=== PATIENT | male | born 1970 | race American Indian/Alaskan Native ===

== ENCOUNTER 2016-10-27 08:41 | Inpatient (IN) | payer OTHER ==
[2016-10-27] MEDS ORDERED: CATAPRES PO ONE (09:06)
[2016-10-27 10:27] LABS: Basophils % (Auto) 0.2 % (0.0-1.8); Hematocrit 35.9 % (35.5-45.6); Hemoglobin 12.3 gm/dl (11.8-15.2); Mean Corpuscular HGB Conc 34 % (32-34); Mean Corpuscular Hemoglobin 29 pg (28-32); Mean Corpuscular Volume 83 fl (84-94); Platelet Count 337 K/mm3 (140-440); Red Blood Count 4.32 M/mm3 (3.65-5.03); Red Cell Distribution Width 14.9 % (13.2-15.2); White Blood Count 18.9 K/mm3 (4.5-11.0)
[2016-10-27 10:44] LABS: Anion Gap 20 mmol/L; Blood Urea Nitrogen 13 mg/dL (9-20); Calcium 8.7 mg/dL (8.4-10.2); Carbon Dioxide 25 mmol/L (22-30); Chloride 94.4 mmol/L (98-107); Glucose 108 mg/dL (75-100); Potassium 4.2 mmol/L (3.6-5.0); Sodium 135 mmol/L (137-145)
[2016-10-27] MEDS ORDERED: MOTRIN PO ONE (11:17)
[2016-10-27] MEDS ORDERED: ZOFRAN IV ONE (18:51)
[2016-10-27] MEDS ORDERED: MORPHINE IV ONE (18:51)
[2016-10-27] MEDS ORDERED: CLEOCIN 600 MG/50 mL 600 MG/50 ML BAG IV ONE (18:55)
[2016-10-27] MEDS ORDERED: NORMODYNE IV ONE ×3 (20:18→22:33)
--- NOTE | 2016-10-27 21:33 | Emergency Department Report ---
- General Chief complaint: Skin/Abscess/Foreign Body Stated complaint: BOIL GROIN AREA Time Seen by Provider: 10/27/16 18:41 Source: patient Mode of arrival: Ambulatory Limitations: No Limitations - History of Present Illness Initial comments: 46-year-old male with a past medical history of hypertension presents to the hospital complaining of scrotal pain and swelling 4 days. Pain is constant, moderate to severe in intensity, worse with palpation and movement. Patient denies dysuria. Positive fever and chills reported at home. Patient states of elevated blood pressure and states he's been noncompliant with this blood pressure medication for at least a week. He states even when he takes it his blood pressures poorly controlled. Patient states he has a headache but thinks is because he has been waiting has not had anything to eat today. - Related Data Home Medications Medication Instructions Recorded Confirmed Last Taken amLODIPine [Norvasc] 5 mg PO DAILY 10/27/16 10/27/16 Unknown Allergies Allergy/AdvReac Type Severity Reaction Status Date / Time No Known Allergies Allergy Unverified 10/27/16 09:00 Abscess Boil HPI - HPI Chief Complaint: Skin/Abscess/Foreign Body Stated Complaint: BOIL GROIN AREA Time Seen by Provider: 10/27/16 18:41 Home Medications: Home Medications Medication Instructions Recorded Confirmed Last Taken amLODIPine [Norvasc] 5 mg PO DAILY 10/27/16 10/27/16 Unknown Allergies/Adverse Reactions: Allergies Allergy/AdvReac Type Severity Reaction Status Date / Time No Known Allergies Allergy Unverified 10/27/16 09:00 ED Review of Systems ROS: Stated complaint: BOIL GROIN AREA Other details as noted in HPI Comment: All other systems reviewed and negative Other: Constitutional: As per HPI Eyes: No eye pain visual changes ENT: No ear pain or throat pain Neck: Denies pain Respiratory: Denies cough wheezing shortness of breath Cardiovascular: Denies chest pain, palpitations, syncope GI: Denies abdominal pain, nausea, vomiting, diarrhea : As per HPI Musculoskeletal: Denies back pain, joint swelling Skin: Per HPI Neurologic: Denies headache, numbness, weakness Psychiatric: Denies suicidal ideation, hallucinations ED Past Medical Hx - Past Medical History Hx Hypertension: Yes - Surgical History Past Surgical History?: No - Social History Smoking Status: Former Smoker Substance Use Type: None - Medications Home Medications: Home Medications Medication Instructions Recorded Confirmed Last Taken Type amLODIPine [Norvasc] 5 mg PO DAILY 10/27/16 10/27/16 Unknown History ED Physical Exam - General Limitations: No Limitations - Other Other exam information: General: No limitations, patient is alert in no acute distress Head exam: Atraumatic, normocephalic Eyes exam: Normal appearance, pupils equal reactive to light, extraocular movements intact ENT: Moist mucous membrane, normal oropharynx Neck exam: Normal inspection, full range of motion, no meningismus nontender Respiratory exam: Clear to auscultation bilateral, no wheezes, rales, crackles Cardiovascular: Normal rate and rhythm, normal heart sounds Abdomen: Soft, nondistended, and nontender, with normal bowel sounds, no rebound, or guarding : Swelling and induration to right scrotal area posteriorly extending anteriorly. Tender to palpation. No testicular tenderness or epididymal tenderness. Circumcised. No penile discharge. No inguinal lymphadenopathy Extremity: Full range of motion normal inspection no deformity Back: Normal Inspection, full range of motion, no tenderness Neurologic: Alert, oriented x3, cranial nerves intact, no motor or sensory deficit Psychiatric: normal affect, normal mood Skin: Warm, dry, intact ED Course Vital Signs 10/27/16 10/27/16 10/27/16 08:47 09:11 11:15 Temperature 99.6 F 101.1 F H Pulse Rate 115 H 115 H 117 H Respiratory 20 20 Rate Blood Pressure 194/140 194/140 188/132 Blood Pressure [Right] O2 Sat by Pulse 95 98 Oximetry 10/27/16 10/27/16 10/27/16 17:59 19:00 19:25 Temperature 99.4 F Pulse Rate 105 H 106 H Respiratory 20 20 20 Rate Blood Pressure Blood Pressure 181/113 194/135 [Right] O2 Sat by Pulse 96 96 Oximetry 10/27/16 10/27/16 10/27/16 19:55 20:46 21:03 Temperature Pulse Rate 107 H Respiratory 20 20 Rate Blood Pressure 159/109 Blood Pressure [Right] O2 Sat by Pulse 97 Oximetry 10/27/16 21:04 Temperature 98.3 F Pulse Rate 107 H Respiratory 20 Rate Blood Pressure Blood Pressure 159/109 [Right] O2 Sat by Pulse 97 Oximetry - Reevaluation(s) Reevaluation #1: 10/27/16 22:27 pt bp improved prior to receiving additional iv bp meds therefore canceled then became elevated again requiring IV meds. Patient treated in the ER with IV clindamycin and pain medications 10/27/16 22:33 - Consultations Consultation #1: 10/27/16 22:26 case d/w Dr. Caruso urology. NO abscess at this time. WIll see in consult ED Medical Decision Making - Lab Data Result diagrams: 10/27/16 10:17 10/27/16 10:17 Lab Results 10/27/16 10/27/16 Range/Units 10:17 10:17 WBC 18.9 H (4.5-11.0) K/mm3 RBC 4.32 (3.65-5.03) M/mm3 Hgb 12.3 (11.8-15.2) gm/dl Hct 35.9 (35.5-45.6) % MCV 83 L (84-94) fl MCH 29 (28-32) pg MCHC 34 (32-34) % RDW 14.9 (13.2-15.2) % Plt Count 337 (140-440) K/mm3 Lymph % (Auto) 9.5 L (13.4-35.0) % [place] % (Auto) 12.3 H (0.0-7.3) % Eos % (Auto) 0.0 (0.0-4.3) % Baso % (Auto) 0.2 (0.0-1.8) % Lymph # 1.8 (1.2-5.4) K/mm3 [place] # 2.3 H (0.0-0.8) K/mm3 Eos # 0.0 (0.0-0.4) K/mm3 Baso # 0.0 (0.0-0.1) K/mm3 Seg Neutrophils % 78.0 H (40.0-70.0) % Seg Neutrophils # 14.7 H (1.8-7.7) K/mm3 Sodium 135 L (137-145) mmol/L Potassium 4.2 (3.6-5.0) mmol/L Chloride 94.4 L (98-107) mmol/L Carbon Dioxide 25 (22-30) mmol/L Anion Gap 20 mmol/L BUN 13 (9-20) mg/dL Creatinine 1.3 (0.8-1.5) mg/dL Estimated GFR > 60 ml/min BUN/Creatinine Ratio 10.00 % Glucose 108 H (75-100) mg/dL Calcium 8.7 (8.4-10.2) mg/dL - Radiology Data Radiology results: report reviewed Scrotal/testicular ultrasound: Scrotal thickening visualized suggesting cellulitis no discrete abscess - Medical Decision Making Plan to admit patient to hospital for IV antibiotics for a scrotal cellulitis with significant leukocytosis. Patient also has poorly controlled blood pressure likely secondary to medication noncompliance. No signs of hypertensive emergency at this time - Differential Diagnosis scrotal abscess, scrotal cellulitis Critical Care Time: No Critical care attestation.: If time is entered above; I have spent that time in minutes in the direct care of this critically ill patient, excluding procedure time. ED Disposition Clinical Impression: Cellulitis of scrotum, Leukocytosis, HTN (hypertension) Disposition: OP ADMITTED IP TO THIS HOSP Is pt being admited?: Yes Condition: Stable Time of Disposition: 22:57 (Matilde/hosp)
--- NOTE | 2016-10-27 22:16 | Ultrasound Report ---
FINAL REPORT PROCEDURE: US TESTICULAR DOPPLER COMP TECHNIQUE: Real-time mckeon-scale and color flow Doppler sonography in multiple planes of the scrotum, testicles, and epididymes was performed. Velocity spectral waveform analysis Doppler imaging of the arterial inflow and venous outflow of the testicles was performed with image documentation. CPT 57538 and 30653 HISTORY: right scrotal abscess COMPARISON: No prior studies are available for comparison. FINDINGS: The echogenicity of the testicles bilaterally appears minimally heterogeneous. No masses or fluid collections are seen. No testicular abscess visualized. No evidence of hydrocele. The scrotal wall appears thickened adjacent to the right testicle. No discrete fluid collection is seen that would suggest an abscess. Right and left epididymis show no gross abnormality. Flow seen in both testicles with Doppler imaging. The testicles do not appear to be enlarged. The right testicle measures 4.0 x 1.6 x 2.5 centimeters. The left testicle measures 3.4 x 1.5 x 2.5 centimeters. IMPRESSION: Scrotal thickening visualized as described suggesting cellulitis. A discrete abscess is not identified. No hydroceles or testicular masses are identified.
[2016-10-27 22:42] LABS: Bilirubin,Urine NEG (Negative); Blood,Urine SM (Negative); Ketones,Urine NEG (Negative); Leukocyte Esterase,Urine NEG (Negative); Mucus,Urine 1+ /HPF; Nitrite,Urine NEG (Negative); Urobilinogen,Urine < 2.0 mg/dL (<2.0)
[2016-10-28] MEDS ORDERED: VANCOMYCIN/NS 1 GM/250 ML 1 GM/250 ML BAG IV ONE (02:15)
[2016-10-28] MEDS ORDERED: ZOFRAN IV PRN ×2 (02:20→06:23)
[2016-10-28] MEDS ORDERED: NACL 0.9% 1000 ML IV SCH (03:00)
[2016-10-28] MEDS: DILAUDID IV PRN ×2 (03:01→06:42)
[2016-10-28] MEDS: NACL 0.9% 1000 ML 1,000 ML IV SCH ×3 (04:37→19:30)
--- NOTE | 2016-10-28 06:20 | Event Note ---
Date: 10/27/16 See H/p in reports Scrotal cellulitis HTN uncontrolled Obesity
[2016-10-28] MEDS ORDERED: DILAUDID IV PRN (06:23)
[2016-10-28] MEDS ORDERED: VANCOMYCIN VIAL 1,000 MG in NACL 0.9% 250ML 250 ML IV SCH (07:00)
[2016-10-28] MEDS: NORVASC PO SCH (09:39)
[2016-10-28] MEDS: LEVAQUIN 750MG/150ML 750 MG/150 ML BAG IV SCH (09:39)
[2016-10-28] MEDS: COZAAR PO SCH (09:39)
[2016-10-28] MEDS ORDERED: NORVASC PO SCH (10:00)
--- NOTE | 2016-10-28 10:24 | Admit Criteria Form ---
Admission Criteria Documentation: CELLULITIS Clinical Indications for Admission to Inpatient Care (Place 'X' for any and all applicable criteria): Admission is indicated for ANY ONE of the following(1)(2)(3)(4)(5): [ ]I. Limb-threatening infection [ ]II. High-risk comorbid condition as indicated by ANY ONE of the following: [ ]a) Uncontrolled diabetes (eg, HbA1c greater than 10% (0.1)) [ ]b) Cirrhosis [ ]c) Neutropenia [ ]d) Asplenia [ ]e) Immunosuppression [ ]f) Symptomatic heart failure [ ]III. Failure of outpatient therapy as indicated by ALL of the following: [ ]a) Progression or no improvement after adequate trial (minimum of 48 hours, with longer period for stable lower extremity infection) [ ]b) Adequate antibiotic regimen as indicated by use of ANY ONE of the following: [ ]i) First-generation cephalosporin (e.g., cephalexin) [ ]ii) Antistaphylococcal penicillin (e.g., dicloxacillin) [ ]iii) Penicillin-allergic patient regimen (clindamycin, extended-spectrum fluoroquinolone, or doxycycline) [ ]iv) Resistant organism (eg, methicillin-resistant Staphylococcus aureus) regimen (6) [ ]c) Outpatient intravenous therapy regimen is not appropriate due to ANY ONE of the following. (7)(8)(9)(10): [ ]i) It was tried and was not successful (eg, progression of infection). [ ]ii) It is not available or cannot be arranged in a clinically appropriate time frame (e.g., the next day). [ ]iii) Clinical presentation (eg, acuity of infection, rapidity of progression, confirmed or suspected bacteremia) is judged to require ALL of the following: [ ]1) Immediate initiation of intravenous therapy ( eg, cannot wait for next day) [ ]2) Intensity of patient monitoring and observation (eg, vital sign measurement, checks for infection progression) that cannot be provided at other than inpatient level of care [ ]IV. Mental status changes [X]V. Bacteremia [ ]. Hemodynamic instability [ ]VII. Suspected necrotizing soft tissue infection (e.g., gas in tissue)(11)( 12) [ ]VIII. Orbital infection (13)(14) [ ]IX. Associated surgical procedure (e.g., abscess drainage, debridement) not amenable to outpatient, emergency department, or observation care [ ]X. Cutaneous gangrene [ ]XI. High fever (temperature greater than 39.5 degrees C (103.1 degrees F) (oral)) not responsive to outpatient, emergency department, or observation care therapy [X]XIII. Inpatient admission required rather than observation care (Also use Cellulitis: Observation Care as appropriate) because of ANY ONE of the following : [ ]a) Periorbital or perineal infection that is severe or worsening [X]b) Severe pain requiring acute inpatient management [ ]c) IV fluid to replace significant ongoing (e.g., for over 24 hours) losses (greater than 3L/m2 per day) [ ]d) Compartment syndrome monitoring (17) [ ]e) Strict or protective (eg, laminar flow) isolation [ ]f) Urgent debridement or skin grafting [ ]g) Bone or joint debridement [ ]h) Immediate inpatient surgery [X]i) Other condition, treatment or monitoring requiring inpatient admission Extended stay beyond goal length of stay may be needed for (1)(18): [ ]a) Necrotizing soft tissue infection or fasciitis [ ]b) Gram-negative infection [ ]c) Methicillin-resistant Staphylococcal aureus (MRSA) infection [ ]d) Peripheral venous insufficiency with cellulitis [ ]e) Extensive edema [ ]f) Sepsis or continued Hemodynamic instability [ ]g) Continued high fever or mental status change [ ]h) Bacteremia [ ]i) Active serious comorbid conditions ( eg, heart failure, renal insufficiency) The original [employer] [facility] content created by [employer] [facility] [employer] has been revised. The portions of the content which have been revised are identified through the use of italic text or in bold, and [facility] has neither reviewed nor approved the modified material. All other unmodified content is copyright [facility] [place] [facility] Please see references footnoted in the original [facility] [employer] edition 2016 Admission Criteria Met: Yes
[2016-10-28] MEDS: VANCOMYCIN VIAL 2,000 MG in NACL 0.9% 500 ML 500 ML IV SCH ×3 (11:16→22:10)
--- NOTE | 2016-10-28 12:08 | Consultation ---
History of Present Illness - Reason for Consult Consult date: 10/28/16 - History of Present Illness 46-year-old male with a past medical history of hypertension presents to the hospital complaining of scrotal pain and swelling 4 days. Pain is constant, moderate to severe in intensity, worse with palpation and movement. Patient denies dysuria. Positive fever and chills reported at home. Patient states of elevated blood pressure and states he's been noncompliant with this blood pressure medication for at least a week. He states even when he takes it his blood pressures poorly controlled. RAULITO (10-27-16) NO ABSCESS exam - scrotal & perineal induration on Levaquin A/p cellulitis no surgery needed home on abx when stable appt 1- 2weeks Medications and Allergies Allergies Allergy/AdvReac Type Severity Reaction Status Date / Time No Known Allergies Allergy Unverified 10/27/16 09:00 Home Medications Medication Instructions Recorded Confirmed Last Taken Type amLODIPine [Norvasc] 5 mg PO DAILY 10/27/16 10/27/16 Unknown History Active Meds: Active Medications Amlodipine Besylate (Norvasc) 10 mg PO DAILY [facility] Last Admin: 10/28/16 09:39 Dose: 10 mg Hydromorphone HCl (Dilaudid) 1 mg IV Q3H PRN PRN Reason: Pain , Severe (7-10) Last Admin: 10/28/16 11:16 Dose: 1 mg Sodium Chloride (Nacl 0.9% 1000 Ml) 1,000 mls @ 100 mls/hr IV DIRECT [facility] Last Admin: 10/28/16 04:37 Dose: 100 mls/hr Levofloxacin/Dextrose (Levaquin 750mg/150ml) 750 mg in 150 mls @ 100 mls/hr IV Q24HR [facility] PRN Reason: Protocol Last Admin: 10/28/16 09:39 Dose: 100 mls/hr Vancomycin HCl 2,000 mg/ (Sodium Chloride) 500 mls @ 250 mls/hr IV Q12H [facility] Losartan Potassium (Cozaar) 100 mg PO QDAY [facility] Last Admin: 10/28/16 09:39 Dose: 100 mg Ondansetron HCl (Zofran) 4 mg IV Q3H PRN PRN Reason: Nausea And Vomiting Exam - Constitutional Vitals: Temp Pulse Resp BP Pulse Ox 98.5 F 94 H 20 159/105 97 02/21/17 07:25 10/28/16 07:25 10/28/16 07:25 10/28/16 07:25 10/28/16 07:25 Results - Labs CBC & Chem 7: 10/27/16 10:17 10/27/16 10:17
--- NOTE | 2016-10-28 14:46 | Progress Note ---
Assessment and Plan Assessment and plan: Sepsis 2/2 scrotal cellulitis - On IV antibiotics - Continue to monitor - Culture is pending - Urology recommendation appreciated - Patient doesn't need any intervention at this time History Interval history: Patient was seen and evaluated this morning, who complains pain in the scrotal area, patient had fever. Hospitalist Physical - Physical exam Narrative exam: Not in cardiopulmonary distress. The patient appeared well nourished and normally developed. Vital signs as documented. Head exam is unremarkable. No scleral icterus . Neck is without jugular venous distension, thyromegaly, or carotid bruits. Lungs are clear to auscultation. Cardiac exam reveals regular rate and Rhythm. First and second heart sounds normal. No murmurs, rubs or gallops. Abdominal exam reveals normal bowel sounds, no masses, no organomegaly and no aortic enlargement. Genitourinary patient has scrotal swelling and tenderness. PLATING INSPECTOR: Alert and oriented 3. No focal weakness. - Constitutional Vitals: Temp Pulse Resp BP Pulse Ox 98.5 F 94 H 20 159/105 97 10/28/16 07:25 10/28/16 07:25 10/28/16 07:25 10/28/16 07:25 10/28/16 07:25 Results - Labs CBC & Chem 7: 10/27/16 10:17 10/27/16 10:17 Labs: Laboratory Last Values WBC 18.9 K/mm3 (4.5-11.0) H 10/27/16 10:17 RBC 4.32 M/mm3 (3.65-5.03) 10/27/16 10:17 Hgb 12.3 gm/dl (11.8-15.2) 10/27/16 10:17 Hct 35.9 % (35.5-45.6) 10/27/16 10:17 MCV 83 fl (84-94) L 10/27/16 10:17 MCH 29 pg (28-32) 10/27/16 10:17 MCHC 34 % (32-34) 10/27/16 10:17 RDW 14.9 % (13.2-15.2) 10/27/16 10:17 Plt Count 337 K/mm3 (140-440) 10/27/16 10:17 Lymph % (Auto) 9.5 % (13.4-35.0) L 10/27/16 10:17 [place] % (Auto) 12.3 % (0.0-7.3) H 10/27/16 10:17 Eos % (Auto) 0.0 % (0.0-4.3) 10/27/16 10:17 Baso % (Auto) 0.2 % (0.0-1.8) 10/27/16 10:17 Lymph # 1.8 K/mm3 (1.2-5.4) 10/27/16 10:17 [place] # 2.3 K/mm3 (0.0-0.8) H 10/27/16 10:17 Eos # 0.0 K/mm3 (0.0-0.4) 10/27/16 10:17 Baso # 0.0 K/mm3 (0.0-0.1) 10/27/16 10:17 Seg Neutrophils % 78.0 % (40.0-70.0) H 10/27/16 10:17 Seg Neutrophils # 14.7 K/mm3 (1.8-7.7) H 10/27/16 10:17 Sodium 135 mmol/L (137-145) L 10/27/16 10:17 Potassium 4.2 mmol/L (3.6-5.0) 10/27/16 10:17 Chloride 94.4 mmol/L (98-107) L 10/27/16 10:17 Carbon Dioxide 25 mmol/L (22-30) 10/27/16 10:17 Anion Gap 20 mmol/L 10/27/16 10:17 BUN 13 mg/dL (9-20) 10/27/16 10:17 Creatinine 1.3 mg/dL (0.8-1.5) 10/27/16 10:17 Estimated GFR > 60 ml/min 10/27/16 10:17 BUN/Creatinine Ratio 10.00 % 10/27/16 10:17 Glucose 108 mg/dL (75-100) H 10/27/16 10:17 Calcium 8.7 mg/dL (8.4-10.2) 10/27/16 10:17 Urine Color Yellow (Yellow) 10/27/16 22:07 Urine Turbidity Clear (Clear) 10/27/16 22:07 Urine pH 5.0 (5.0-7.0) 10/27/16 22:07 Ur Specific [place] 1.023 (1.003-1.030) 10/27/16 22:07 Urine Protein 100 mg/dl mg/dL (Negative) 10/27/16 22: Urine Glucose (UA) 50 mg/dL (Negative) 10/27/16 22: Urine Ketones Neg mg/dL (Negative) 10/27/16 22: Urine Blood Sm (Negative) 10/27/16 22: Urine Nitrite Neg (Negative) 10/27/16 22: Urine Bilirubin Neg (Negative) 10/27/16 22: Urine Urobilinogen < 2.0 mg/dL (<2.0) 10/27/16 22: Ur Leukocyte Esterase Neg (Negative) 10/27/16 22: Urine WBC (Auto) 3.0 /HPF (0.0-6.0) 10/27/16 22:07 Urine RBC (Auto) 3.0 /HPF (0.0-6.0) 10/27/16 22: U Epithel Cells (Auto) 1.0 /HPF (0-13.0) 10/27/16 22: Urine Mucus 1+ /HPF 10/27/16 22:
[2016-10-28] MEDS: DOMEBORO PACKET TP SCH ×2 (17:04→22:09)
--- NOTE | 2016-10-28 20:18 | History and Physical Report ---
CHIEF COMPLAINT: Swelling of the scrotum for 4 days and pain in the scrotum for 4 days. 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 The pain is 10/10, sharp in nature. Fever and chills present at home. Noncompliant with his blood pressure medication. Able to urinate. No urinary incontinence or urinary retention. As per the patient, his blood pressure is poorly controlled in spite of taking amlodipine 5 mg once a day. No recent injury to the scrotum. No laceration or no recent cuts to the scrotum. Did not shave the groin scrotal region. PAST MEDICAL HISTORY: Significant for hypertension which is uncontrolled. PAST SURGICAL HISTORY: None. SOCIAL HISTORY: He used to smoke, stopped smoking about 5 years ago. CURRENT MEDICATIONS: Amlodipine 5 mg once a day. REVIEW OF SYSTEMS: GENERAL: Fever and chills present. No weight loss, no weight gain. HEENT: No sore throat. No postnasal drip. CARDIOVASCULAR AND RESPIRATORY: No shortness of breath, no chest pain, no palpitations. GASTROINTESTINAL: No nausea, no vomiting, no diarrhea. GENITOURINARY: As mentioned scrotal swelling, severe and pain about 10 on a scale of 1-10 and warm to touch as per the patient. No urinary incontinence. No retention. MUSCULOSKELETAL: No joint pains, no muscle pains. CENTRAL NERVOUS SYSTEM: No syncope, no seizures. SKIN: As mentioned, scrotal swelling and redness and warm to touch present. HEMATOLOGIC AND LYMPHATIC: No easy bruising. A 14-point review of systems done, essentially negative. PHYSICAL EXAMINATION: GENERAL: Middle-aged male lying in bed comfortably in some pain. VITAL SIGNS: Blood pressure is 194/140, temperature is 99.6, pulse is 115, respiratory rate is 20, repeat temperature is 101.5. HEENT: Unremarkable. NECK: Supple. No lymphadenopathy, no thyromegaly. LUNGS: Clear to auscultation and percussion. Good air entry. CARDIOVASCULAR: S1, S2 heard. No gallop, no murmur, no rub. Apical impulse in left fifth intercostal space and midclavicular line. ABDOMEN: Soft and benign. Scrotum is very swollen and warm to touch. Tender to touch. Penis is normal size. EXTREMITIES: Good pedal pulses. No pedal edema. CENTRAL NERVOUS SYSTEM: Alert and oriented x 4. Nonfocal exam. SKIN: Normal. As mentioned, scrotal swelling and warm to touch present. IMAGING STUDIES AND LABORATORY DATA: Scrotal thickening visualized and as discussed adjacent cellulitis. Abscess not identified. Labs were significant for white count of 18,900, H and H is 12.3 and 35.9, platelet count is 337,000. Sodium is 135, potassium is 4.2, chloride is 94.4, bicarbonate is 25, BUN and creatinine is 13 and 1.3, glucose is 108, calcium is 8.7. Urine specific gravity is 1.023, urine ketones negative. IMPRESSION AND PLAN: 1. Scrotal cellulitis. The patient started on IV vancomycin and IV Levaquin to cover streptococcus and vancomycin for Staph MRSA. 2. Uncontrolled hypertension. The patient's amlodipine increased to 10 mg, losartan 100 mg p.o. daily added. The patient will be discharged on amlodipine 10 and losartan 100 mg daily if the blood pressure is controlled, if not add Coreg 12.5 q. 12. The patient to be discharged on 2-3 blood pressure medications. 3. Obesity. The patient counseled about obesity. 4. Deep venous thrombosis prophylaxis, Lovenox 40 mg subcutaneous daily. JOB# [id number] [place]EN/[place]
[2016-10-28] MEDS: COREG PO SCH (22:09)
--- NOTE | 2016-10-29 01:21 | Consultation ---
CHIEF COMPLAINT: Scrotal cellulitis. REFERRING PHYSICIAN: Dr. Jonathan Clayton. HISTORY OF PRESENT ILLNESS: This 46-year-old gentleman presented to the Emergency Room with 4 days of scrotal cellulitis of scrotal pain and swelling. Doppler ultrasound, no hydrocele, no masses, no abscess. Some thickening of the scrotal skin. The patient states this has happened before in his thigh. ALLERGIES: He has no known drug allergies. PAST MEDICAL HISTORY: Hypertension. PAST SURGICAL HISTORY: Unremarkable. MEDICATIONS: Norvasc, Cozaar. PHYSICAL EXAMINATION: GENERAL: He is alert and oriented. VITAL SIGNS: Temperature was 100.4 and now it is 98.5, respiration is 20, pulse 94, BP 159/105. BACK: No CVA tenderness. ABDOMEN: Soft, normal phallus. Testes are palpable, normal. Has inflammation in the perineum. No flatulence. LABORATORY DATA: BUN and creatinine 13 and 1.3 respectively. Hemoglobin and hematocrit 12 and 35 respectively, white count 18,000, platelets 333,000. ASSESSMENT: Scrotal cellulitis. PLAN: Continue broad spectrum antibiotics. No surgical intervention needed. Follow up in 1-2 weeks. JOB# [id number] C/NTS
[2016-10-29] MEDS: DOMEBORO PACKET TP SCH (06:02)
[2016-10-29 06:55] LABS: Basophils % (Auto) 0.3 % (0.0-1.8); Eosinophils % (Auto) 2.7 % (0.0-4.3); Hematocrit 34.7 % (35.5-45.6); Mean Corpuscular HGB Conc 35 % (32-34); Mean Corpuscular Hemoglobin 29 pg (28-32); Mean Corpuscular Volume 83 fl (84-94); Platelet Count 316 K/mm3 (140-440); Red Blood Count 4.21 M/mm3 (3.65-5.03); Red Cell Distribution Width 14.5 % (13.2-15.2); White Blood Count 11.8 K/mm3 (4.5-11.0)
[2016-10-29 07:04] LABS: Anion Gap 17 mmol/L; Blood Urea Nitrogen 12 mg/dL (9-20); Calcium 8.3 mg/dL (8.4-10.2); Carbon Dioxide 26 mmol/L (22-30); Glucose 103 mg/dL (75-100); Potassium 3.7 mmol/L (3.6-5.0); Sodium 136 mmol/L (137-145)
--- NOTE | 2016-10-29 09:55 | Discharge Summary ---
Providers - Providers Date of Admission: 10/27/16 22:58 Date of discharge: 10/29/16 Attending physician: MICKY WOODRUFF MD 10/28/16 07:59 Consult to Physician [CONS] Routine Consulting Provider: NICK MCINTOSH Reason For Exam: scrotal cellulitis Place consult to:: urology Notified:: DR MCINTOSH Was contact made?: Yes Comment:: on floor 10/28/16 08:20 Consult to Wound/ET Nurse [CONS] Routine Reason For Exam: wound eval/scrotom wound abcess Primary care physician: PEDIATRIC NP Hospitalization Reason for admission: scrotal cellulitis Condition: Stable Hospital course: Patient is admitted for sepsis secondary to scrotal cellulitis and he was seen by urology recommended to continue antibiotics. no Intervention needed at this time. Patient WBC count is trended down to normal. Patient is stable at the time of discharge. Patient will be discharged with PO antibiotics. Disposition: DISCHARGED TO HOME OR SELFCARE Time spent for discharge: 31 minutes - Discharge Diagnoses (1) Cellulitis of scrotum Status: Acute (2) HTN (hypertension) Status: Acute Qualifiers: Hypertension type: H (3) Leukocytosis Status: Acute Qualifiers: Leukocytosis type: L Core Measure Documentation - Palliative Care Palliative Care/ Comfort Measures: Not Applicable - Core Measures Any of the following diagnoses?: none Exam - Physical Exam Narrative exam: Not in cardiopulmonary distress. The patient appeared well nourished and normally developed. Vital signs as documented. Head exam is unremarkable. No scleral icterus . Neck is without jugular venous distension, thyromegaly, or carotid bruits. Lungs are clear to auscultation. Cardiac exam reveals regular rate and Rhythm. First and second heart sounds normal. No murmurs, rubs or gallops. Abdominal exam reveals normal bowel sounds, no masses, no organomegaly and no aortic enlargement. Genitourinary patient has scrotal swelling and tenderness. [employer]: Alert and oriented 3. No focal weakness. - Constitutional Vitals: Temp Pulse Resp BP Pulse Ox 98.2 F 83 18 173/117 98 10/29/16 08:00 10/29/16 08:00 10/29/16 08:00 10/29/16 08:00 10/29/16 08:00 Plan Activity: no restrictions Weight Bearing Status: Full Weight Bearing Diet: low cholesterol, low salt Follow up with: PRIMARY CARE, [Primary Care Provider] - 7 Days NICK MCINTOSH MD [Staff Physician] - 14 Days Prescriptions: amLODIPine [Norvasc] 10 mg PO DAILY #30 tablet Calcium Acetate/Aluminum Sulf [[place] Packet] 1 each TP BID #14 packet Carvedilol [Coreg] 6.25 mg PO BID #30 tablet Doxycycline [Vibramycin CAP] 100 mg PO Q12HR #28 capsule Losartan [Cozaar] 100 mg PO QDAY #60 tablet
[2016-10-29] MEDS: COZAAR PO SCH (10:07)
[2016-10-29] MEDS: LEVAQUIN 750MG/150ML 750 MG/150 ML BAG IV SCH (10:08)
[2016-10-29] MEDS: COREG PO SCH (10:08)
[2016-10-29] MEDS: NORVASC PO SCH (10:08)
[2016-10-29] MEDS: VANCOMYCIN VIAL 2,000 MG in NACL 0.9% 500 ML 500 ML IV SCH (12:00)
[2016-10-29] MEDS ORDERED: APRESOLINE IV ONE (15:30)
[2016-10-29 16:09] VITALS: BP 169/109
== END 2016-10-29 17:56 | disposition home or self-care (01) | DRG 872 ==
LOC: ED 08:41 → 3A 22:58
PROVIDERS: ADMIT Internal Medicine; ATTEND Internal Medicine
DX: A41.9 Sepsis, unspecified organism (principal); N49.2 Inflammatory disorders of scrotum; I10 Essential (primary) hypertension; E66.9 Obesity, unspecified; Z87.891 Personal history of nicotine dependence; Z91.14 Patient's other noncompliance with medication regimen; Z68.37 Body mass index [BMI] 37.0-37.9, adult
CPT/HCPCS: 36415; 80048; 81001; 85025; 87591; 93975; 96365; 96375; 96376; J0360; J1170; J1956; J2270; J2405; J3370; J7030; J7040